=== PATIENT | female | born 1940 | race Caucasian/White ===

== ENCOUNTER 2016-04-04 08:05 | Day surgery (SDC) | payer MEDICARE, MEDICAID ==
--- NOTE | 2016-03-29 11:38 | HISTORY AND PHYSICAL E ---
History and Physical NAME: ANDREINA SURESH : 1940 AGE: 76Y ADMITTED: 04/04/2016 ROOM: NOTE: The patient to be done in the OR, anesthesia standby. CHIEF COMPLAINT: Patient presented regarding history of polyps. She does have mass in the rectal area. END OF DICTATION DICTATING PHYSICIAN: CRISPIN APONTE M.D. [id number] [id number] PHY#: [id number] ID: [id number] JOB#: [id number] ACCT: [id number] cc:CRISPIN APONTE M.D. >
--- NOTE | 2016-03-29 13:27 | HISTORY AND PHYSICAL E ---
History and Physical NAME: ANDREINA SURESH : 1940 AGE: 76Y ADMITTED: 04/04/2016 ROOM: HISTORY: The patient was seen in 2014. She did have polyps in the sigmoid colon. She did have submucosal lesion in the rectum. She presented for followup regarding polyps and mass in the rectum. She did have high splenic, distal transverse colon normal. Unable to pass the scope to the right colon or to the hepatic mid transverse colon. The patient did have barium enema which was done showing sigmoid polyp. At this time, patient admitted for colonoscopy. PAST SURGICAL HISTORY: She did have hysterectomy, cataract, breast biopsy. REVIEW OF SYSTEMS: RESPIRATORY: Sleep apnea. CARDIAC: Hypertension. ENDOCRINE: Negative. GASTROINTESTINAL: Colon screening. History of polyps. ONCOLOGY/HEMATOLOGY: Skin lesion in the scalp. MUSCULOSKELETAL: Arthritis. FAMILY HISTORY: Father . History unknown. Mom , had CVA. MEDICATIONS: 1. Hydrocodone. 2. Tylenol. 3. Losartan. PHYSICAL EXAMINATION: VITAL SIGNS: Blood pressure 140/90, pulse 80, respirations 18, temp is 98. HEAD, EYES, EARS, NOSE AND THROAT: Normal. NECK: Neck is supple. LUNGS: Clear. ABDOMEN: Soft. NEUROLOGICAL: Exam negative. Again, colon done a year ago showing polyp in the sigmoid and submucosa mass lesion. The biopsy came as follows, the sigmoid polyp is adenoma. We did ultrasound on her pelvis. It shows 5 cm cyst in her left ovary. No indication of acute inflammation. The cyst measured 5 cm in the left ovary. Consider repeating the ultrasound of her pelvic area. Her last ultrasound was 12/13/2014. Consider repeating the ultrasound. We did CA-125 which was normal at 7.9. Hemoglobin was 4 with hematocrit 38, white count 14. Chem profile, CEA is negative. Patient did have barium enema shows as follow: She did have ascending colon normal. The transverse colon shows 3 mm polyp in the mid transverse colon which was seen in the distal transverse colon. The descending colon shows normal. Sigmoid shows normal. The rectum shows normal. Conclusion: A 3 mm polyp in the cecum and transverse colon, above sigmoid colon, diverticuli without sign of diverticulitis. A very tiny 3 mm polyp in the cecum and transverse colon. Again, the patient did have a 3 mm polyp in the medial wall of the cecum, 3 mm polyp in the mid transverse colon. PLAN: We will try colonoscopy first with the baby, baby gastroscope and pediatric colonoscope. Need to try 2 scopes, baby, baby gastroscope and pediatric colonoscope. CONCLUSION: Colon screening. Colorectal polyps. Difficult colonoscopy, high splenic. Try colonoscopy regarding polyp in the sigmoid colon, adenoma polyp in the transverse colon, polyp in the cecum. Difficult colonoscopy. We will try and if we do not succeed, consider repeat barium enema after 2 years. MEDICATIONS: 1. Losartan. 2. Vitamin D. 3. Hydrocodone. 4. Tylenol. DICTATING PHYSICIAN: CRISPIN APONTE M.D. 1211M 1117 PHY#: [id number] ID: [id number] JOB#: [id number] ACCT: [id number] cc:CRISPIN APONTE M.D. >
[2016-04-02 13:13] LABS: HEMATOCRIT 37.5 % (36.0-47.0); HEMOGLOBIN 12.5 g/dL (12.0-15.5); MEAN CORPUSCULAR HEMOGLOBIN 28.8 pg (27.0-33.4); MEAN CORPUSCULAR HGB CONC 33.4 g/dL (32.0-36.0); MEAN CORPUSCULAR VOLUME 86 fl (80-97); RED BLOOD COUNT 4.36 10^6/uL (3.72-5.28); RED CELL DISTRIBUTION WIDTH 13.5 % (11.5-14.0)
[2016-04-02 13:33] LABS: ANION GAP 9 (5-19); BLOOD UREA NITROGEN 13 mg/dL (7-20); CALCIUM 9.8 mg/dL (8.4-10.2); CARBON DIOXIDE 31 mmol/L (22-30); CHLORIDE 103 mmol/L (98-107); CREATININE RESULT 0.64 mg/dL (0.52-1.25); GLUCOSE 99 mg/dL (75-110); POTASSIUM 4.5 mmol/L (3.6-5.0); SODIUM 142.9 mmol/L (137-145)
--- NOTE | 2016-04-02 21:44 | EKG REPORT ---
SEVERITY:- OTHERWISE NORMAL ECG - SINUS RHYTHM ATRIAL PREMATURE COMPLEX BORDERLINE LEFT AXIS DEVIATION : Confirmed by: Santana Palmer 02-Apr-2016 21:44:01
[~2016-04-04 08:05] MED LIST: LACTATED RINGERS 1000 ML IV PRN; LIDOCAINE 0.5% INJ-PF (5 MG/ML) 50 ML SDV SUBCUT PRN
[2016-04-04] MEDS ORDERED: ONDANSETRON HCL INJ/PF 4 MG/2 ML SDV ONE (10:37)
[2016-04-04] MEDS ORDERED: LIDOCAINE 2% INJ-PF (20 MG/ML) 10 ML AMPUL ONE (10:37)
[2016-04-04] MEDS ORDERED: PROPOFOL INJ 200 MG/20 ML VIAL IV ONE ×2 (10:37→11:23)
[2016-04-04] MEDS ORDERED: DEXMEDETOMIDINE INJ 80 MCG/20 ML VIAL IV ONE (10:37)
[2016-04-04] MEDS ORDERED: GLUCAGON,HUMAN RECOMB 1 MG INJ ONE (11:05)
[2016-04-04] MEDS ORDERED: MORPHINE SULFATE 10 MG/ML INJ IV PRN (11:47)
[2016-04-04] MEDS ORDERED: MEPERIDINE HCL/PF INJ 25 MG/1 ML DISP.SYRIN IV PRN (11:47)
[2016-04-04] MEDS ORDERED: FENTANYL CITRATE INJ/PF 100 MCG/2 ML AMPUL IV PRN ×3 (11:47)
[2016-04-04] MEDS ORDERED: DIPHENHYDRAMINE HCL 50 MG/ML VIAL IV PRN (11:47)
[2016-04-04] MEDS ORDERED: PROMETHAZINE HCL INJ 25 MG/1 ML VIAL IV PRN ×3 (11:47→12:15)
[2016-04-04] MEDS ORDERED: LIDOCAINE 2% VISCOUS SOLN 20 ML UDCUP PO PRN (12:13)
[2016-04-04] MEDS ORDERED: ACETAMINOPHEN 325 MG TABLET PO PRN (12:14)
[2016-04-04] MEDS ORDERED: SIMETHICONE 80 MG TAB.CHEW PO PRN (12:16)
[2016-04-04 12:49] LABS: ABSOLUTE EOSINOPHILS # (AUTO) 0.1 10^3/uL (0.0-0.6); ABSOLUTE LYMPHOCYTES (AUTO) 1.1 10^3/uL (0.5-4.7); ABSOLUTE MONOCYTES (AUTO) 0.8 10^3/uL (0.1-1.4); ABSOLUTE NEUT (AUTO) 10.8 10^3/uL (1.7-8.2); BASOPHILS % (AUTO) 0.3 % (0-2); EOSINOPHILS % (AUTO) 0.7 % (0-6); HEMATOCRIT 35.4 % (36.0-47.0); HEMOGLOBIN 11.8 g/dL (12.0-15.5); LYMPHOCYTES % (AUTO) 8.5 % (13-45); MEAN CORPUSCULAR HEMOGLOBIN 27.9 pg (27.0-33.4); MEAN CORPUSCULAR HGB CONC 33.4 g/dL (32.0-36.0); MEAN CORPUSCULAR VOLUME 83 fl (80-97); MONOCYTES % (AUTO) 6.6 % (3-13); RED BLOOD COUNT 4.25 10^6/uL (3.72-5.28); RED CELL DISTRIBUTION WIDTH 13.1 % (11.5-14.0); SEGMENTED NEUTROPHILS % (AUTO) 83.9 % (42-78)
[2016-04-04 12:52] LABS: WHITE BLOOD COUNT 12.8 10^3/uL (4.0-10.5)
[2016-04-04 14:39] VITALS: BP 116/56
--- NOTE | 2016-04-04 15:26 | DISCHARGE SUMMARY E ---
Discharge Summary NAME: ANDREINA SURESH : 1940 AGE: 76Y ADMITTED: 04/04/2016 DISCHARGED: 04/04/2016 04/04/2016 HISTORY: The patient, 76, has a history of polyps shown on barium enema. Unsuccessful prior colonoscopy upstairs on conscious sedation. Today, with deep sedation, we advanced to the mid transverse colon, unable to reach the cecum. PLAN: Awaiting biopsy results. Consider repeating barium enema in a few weeks. Full liquid diet. Lab studies. We will obtain CA 125 to rule out ovarian and CEA and CBC. Hold aspirin and nonsteroidals for a week pending biopsy results. MEDICATIONS: She takes Ecotrin and Excedrin. We will stop those and continue the rest of her medications. FINAL DIAGNOSES: 1. Diverticulosis. 2. Polyps. DIAGNOSTICS: Her CBC preop was white count 10, hemoglobin 12, and hematocrit 38. The patient's chemistry shows a potassium of 4.5, BUN and creatinine normal. CONCLUSIONS: 1. Polyps. 2. Diverticulosis. DICTATING PHYSICIAN: CRISPIN APONTE M.D. 1209M 1154 PHY#: [id number] ID: [id number] JOB#: [id number] ACCT: [id number] cc:CRISPIN APONTE M.D. >
--- NOTE | 2016-04-04 15:28 | OPERATIVE REPORT E ---
Operative Report NAME: ANDREINA SURESH : 1940 AGE: 76Y DATE OF SURGERY: 04/04/2016 ROOM: PREOPERATIVE DIAGNOSES: 1. History of polyps. 2. Redundant colon. 3. Incomplete colonoscopy on previous exam. 4. Barium enema showing possibility of polyps in the transverse colon, 2 mm, and 3-mm polyp in the cecum. PROCEDURE: Incomplete colonoscopy to the mid transverse colon. SURGEON: CRISPIN APONTE M.D. ANESTHESIA: Done in the OR with propofol. DESCRIPTION OF PROCEDURE: We started the procedure with the patient on her right decubiti because the previous trial on the left decubiti was unsuccessful. The rectum shows a 2-cm, smooth mass, most likely lipoma in the rectosigmoid junction, benign looking. Sigmoid shows a very small sessile polyp, biopsy obtained, mild diverticulosis. Descending colon normal. The splenic cav is very high. We tried to advance the scope on the right decubiti unsuccessfully. We stopped the procedure and we repositioned the instruments, and this time we advanced the scope in the regular fashion left decubiti. Again, the rectal mass was visualized, smooth, 2 cm, most likely lipoma. The sigmoid diverticulosis was visualized. The site of the polyp was visualized. We advanced into the mid transverse colon. We felt that it was enough trial and we elected not to complete to the cecum because of the difficulties of the redundancy of the splenic cav. PLAN: Awaiting the biopsy results. Consider barium enema in a few months. The patient is to be discharged on full liquid diet. We will do lab studies again. FINAL DIAGNOSES: 1. Incomplete colonoscopy. 2. Diverticulosis. 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 4. Sigmoid polyp and diverticulosis. The patient tolerated the procedure well and was discharged to the recovery room in stable condition. DICTATING PHYSICIAN: CRISPIN APONTE M.D. 1209M [id number] PHY#: [id number] ID: [id number] JOB#: [id number] ACCT: [id number] cc:CRISPIN APONTE M.D. >
== END 2016-04-04 13:40 | disposition home or self-care (01) ==
LOC: END 08:05
PROVIDERS: ATTEND Specialist
PROC: 0DBN8ZX Excision of Sigmoid Colon, Via Natural or Artificial Opening Endoscopic, Diagnostic (ICD-10-PCS; principal; 2016-04-04 10:00)
DX: D12.5 Benign neoplasm of sigmoid colon (principal); R97.0 Elevated carcinoembryonic antigen [CEA]; K57.30 Diverticulosis of large intestine without perforation or abscess without bleeding; I11.0 Hypertensive heart disease with heart failure; Z79.899 Other long term (current) drug therapy
CPT/HCPCS: 45380; 93005; 36415 ×2; 86304; 82378; 85025; 85027; 80048; 88305 ×2; 93010; J1610; J2405; J2704; J3490 ×2; 810